=== PATIENT | female | born 1995 | race Two or more races ===

== ENCOUNTER 2016-11-10 21:04 | Emergency (ER) | payer OTHER ==
[2016-11-10 21:12] VITALS: BP 128/76; PULSE 83; TEMP 98; BMI 29.0
--- NOTE | 2016-11-10 21:38 | PDOC ---
History of Present Illness - History of Present Illness Initial Comments: 11/10/16 23:09 Patient is a 20 year old female (18 weeks) with no significant medical hx who is presenting to the ED with one day of pelvic discomfort and lower back pain. Patient reports she recently moved here from [place] where she received care and her last US which was done in 08/2016 that revealed IUP at 13 weeks. Patient today is complaining of one day of mild lower back pain and pelvic discomfort that she describes as cramping. Denies any nausea, vomiting, diarrhea, fever, chills, vaginal bleeding, vaginal discharge, or urinary complaints. /M1, hx of , LNMP: 07/01/2016 NKDA <Awilda Stevens - Last Filed: 11/10/16 23:18> <Naina Hurtado - Last Filed: 11/10/16 23:52> - General Chief Complaint: Pain Stated Complaint: 18 WEEKS WITH ABD PAIN Time Seen by Provider: 11/10/16 21:31 Past History <Awilda Stevens - Last Filed: 11/10/16 23:18> - Psycho/Social/Smoking Cessation Hx Suicidal Ideation: No Smoking History: Never smoked <Naina Hurtado - Last Filed: 11/10/16 23:52> - Past Medical History Allergies/Adverse Reactions: Allergies Allergy/AdvReac Type Severity Reaction Status Date / Time No Known Allergies Allergy Verified 11/10/16 21:09 Home Medications: Ambulatory Orders NK [No Known Home Medication] 11/10/16 Review of Systems - Review of Systems Comments:: 11/10/16 23:15 CONSTITUTIONAL: Absent: fever, chills, diaphoresis, generalized weakness, malaise, loss of appetite HEENT: Absent: rhinorrhea, nasal congestion, throat pain, throat swelling, difficulty swallowing, mouth swelling, ear pain, eye pain, visual changes CARDIOVASCULAR: Absent: chest pain, syncope, palpitations, irregular heart rate, lightheadedness , peripheral edema RESPIRATORY: Absent: cough, shortness of breath, dyspnea with exertion, orthopnea, wheezing, stridor, hemoptysis GASTROINTESTINAL: Present: pelvic cramping Absent: abdominal distension, nausea, vomiting, diarrhea, constipation, melena, hematochezia GENITOURINARY: Absent: dysuria, frequency, urgency, hesitancy, hematuria, flank pain, genital pain MUSCULOSKELETAL: Present: lower back pain Absent: myalgia, arthralgia, joint swelling SKIN: Absent: rash, itching, pallor HEMATOLOGIC/IMMUNOLOGIC: Absent: easy bleeding, easy bruising, lymphadenopathy, frequent infections ENDOCRINE: Absent: unexplained weight gain, unexplained weight loss, heat intolerance, cold intolerance NEUROLOGIC: Absent: headache, focal weakness or paresthesia, dizziness, unsteady gait, seizure, mental status changes, bladder or bowel incontinence. PSYCHIATRIC: Absent: anxiety, depression, suicidal or homicidal ideation, hallucinations <Awilda Stevens - Last Filed: 11/10/16 23:18> *Physical Exam - Vital Signs Last Vital Signs Temp Pulse Resp BP Pulse Ox 98 F 83 20 128/76 100 11/10/16 21:10 11/10/16 21:10 11/10/16 21:10 11/10/16 21:10 11/10/16 21:10 - Physical Exam Comments: 11/10/16 23:15 GENERAL: Well developed, well nourished. Awake and alert. No acute distress. HEENT: Normocephalic, atraumatic. PERRLA, EOMI. No conjunctival pallor. Sclera are non- icteric. Moist mucous membranes. Oropharynx is clear. NECK: Supple. Full ROM. No JVD. Carotid pulses 2+ and symmetric, without bruits. No thyromegaly. No lymphadenopathy. CARDIOVASCULAR: Regular rate and rhythm. No murmurs, rubs, or gallops. Distal pulses are 2+ and symmetric. PULMONARY: No evidence of respiratory distress. Lungs clear to auscultation bilaterally. No wheezing, rales or rhonchi. ABDOMINAL: Gravid abdomen. Soft. Non-tender. Non-distended. No rebound or guarding. No organomegaly. Normoactive bowel sounds. MUSCULOSKELETAL: Normal range of motion at all joints. No bony deformities or tenderness. No CVA tenderness. EXTREMITIES: No cyanosis. No clubbing. No edema. No calf tenderness. SKIN: Warm and dry. Normal capillary refill. No rashes. No jaundice. NEUROLOGICAL: Alert, awake, appropriate. Cranial nerves 2-12 intact. Normal speech. PSYCHIATRIC: Cooperative. Good eye contact. Appropriate mood and affect. <Awilda Stevens - Last Filed: 11/10/16 23:18> - Vital Signs Last Vital Signs Temp Pulse Resp BP Pulse Ox 98 F 83 20 128/76 100 11/10/16 21:10 11/10/16 21:10 11/10/16 21:10 11/10/16 21:10 11/10/16 21:10 <Naina Hurtado - Last Filed: 11/10/16 23:52> *DC/Admit/Observation/Transfer - Attestations Scribe Attestion: 11/10/16 23:16 Documentation prepared by Awilda Stevens, acting as biomedical electronics technician for Naina Hurtado MD. <Awilda Stevens - Last Filed: 11/10/16 23:18> <Niana Hurtado - Last Filed: 11/10/16 23:52> Diagnosis at time of Disposition: Second trimester - Discharge Dispostion Disposition: HOME Condition at time of disposition: Stable - Referrals Referrals: Bi Plata MD [Staff Physician] - Orestes Porter MD [Staff Physician] - Dinora Burgess MD [Staff Physician] - - Patient Instructions Printed Discharge Instructions: DI for -- Discomforts and Remedies Additional Instructions: please followup with ad taker You have been given several names for referral for ad taker return for any worsening symptoms
== END 2016-11-10 23:56 | disposition home or self-care (01) ==
LOC: JER 21:04
DX: O26.892 Other specified pregnancy related conditions, second trimester (principal); R10.30 Lower abdominal pain, unspecified; Z3A.18 18 weeks gestation of pregnancy
CPT/HCPCS: 76801-TC; 99281-25

== ENCOUNTER 2017-04-01 06:10 | Inpatient (IN) | payer OTHER ==
[~2017-04-01 06:10] MED LIST: CITRIC ACID/SODIUM CITRATE 30 ML UNIT-DOSE CUP PO ONE; ELECTROLYTE-148 SOLN 500 ML IV ONE
[2017-04-01] MEDS ORDERED: ELECTROLYTE-148 SOLN 500 ML IV ONE (06:40)
[2017-04-01 06:50] VITALS: BMI 34.2
--- NOTE | 2017-04-01 08:30 | HP ---
Past Medical History - Primary Care Physician PCP:: Huma Sheikh - Admission Chief Complaint: 21yrs , 39.3/7 weeks by sono with previous c/section type unknown, requests for repeat c/section History of Present Illness: care transferred to [address] [place] [address] at 24 weeks work up : O Pos, Hbsag neg, Rubella pos, Rpr nr,Hiv nr , Sickle neg, ! hr Gtt 119, Gc culture neg , Quantiferon neg Chlamydia pos on 08/14/16 in [place] treated with Zithromax in 08/[address] culture 12/10/16 neg , again 03/11/17 Ct culture pos , pt treated at [address] [place] [address] with Zithromax, post NOV treatment culture is not repeated GBS culture positive 01/08/17 sono by [facility] 27.2/7 weeks, sliup vx, ant placenta ,, 42%tile growth . 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 No: GERD Reproductive: No: Other ...: 3 ...Para: 1 (04/28/13 primary c/section 3.5 kg 40 weeks , in [place] ) ...Term: 1 ...: 0 ...Spon : 1 ...Induced : 0 ...Multiple Gestation: 0 ...LMP: 07/01/16 ... Weeks Gestation by Dates: 39.1 ...EDC by Dates: 04/07/17 ...EDC by Sono: 04/05/17 Heme/Onc: Yes: Anemia Infectious Disease: Yes: STD's (h/o chlamydia pos in 07/2016 & in 03/11/17 pos both times treated with zithromax 1 gm . ( h/o significant other was not treated ) Psych: No: Addictions, Anxiety, Bipolar, Depression, Panic, Psychosis, Schizophrenia - Past Surgical History Past Surgical History: Yes: (04/2013 c/section in [place]) Hx Myomectomy: No Hx Transabdominal Cerclage: No - Smoking History Smoking history: Never smoked Have you smoked in the past 12 months: No - Alcohol/Substance Use Hx Alcohol Use: No History of Substance Use: reports: None - Social History History of Recent Travel: No Home Medications - Allergies Allergies/Adverse Reactions: Allergies Allergy/AdvReac Type Severity Reaction Status Date / Time Penicillins AdvReac Intermediate Rash Verified 04/01/17 06:52 - Home Medications Home Medications: Ambulatory Orders Ferrous Sulfate [Feosol] 325 mg PO DAILY 01/08/17 Vit Calc,Iron,Folic [ Vitamins] 1 each PO DAILY 01/08/17 Physical Exam - Maternity Vital Signs: Vital Signs Temperature 98.0 F 04/01/17 06:10 Pulse Rate 93 H 04/01/17 06:10 Respiratory Rate 20 04/01/17 06:10 Blood Pressure 117/64 04/01/17 06:10 O2 Sat by Pulse Oximetry (%) Selected Entries 04/01/17 06:41 Weight 212 lb Constitutional: Yes: Well Nourished, Obese Eyes: Yes: WNL HENT: Yes: WNL, Normocephalic Neck: Yes: WNL Cardiovascular: Yes: WNL, Regular Rate and Rhythm Lungs: Clear to auscultation Breast(s): Yes: WNL - Abdominal Exam/OB Fundal Height: 38 Number of Fetuses: Single Presentation: Vertex Contractions: Yes Regularity: Irregular Intensity: Unaware Monitor Mode: External Heart Rate (range): 140 Heart Rate Location: [facility] Category: I Accelerations: Uniform - Vaginal Exam/OB Vaginal Bleediing: No Dilatation (cm): close Effacement (%): unefface Amniotic Membrane Status: Intact Presentation: Vertex/Position Station: -3 - Physical Exam Musculoskeletal: Yes: WNL Extremities: Yes: WNL. No: Calf Tenderness Edema: Yes Edema: LLE: 1+, RLE: 1+ Integumentary: Yes: Incision (subumblical midline incision) Deep Tendon Reflex Grade: Normal +2 ...Motor Strength: WNL Psychiatric: Yes: WNL, Alert, Oriented - Labs Lab Results: Laboratory Tests 03/30/17 03/30/17 03/30/17 14:02 14:02 14:02 WBC 9.8 D Hgb 13.5 D Hct 39.8 D MCV 89.3 Plt Count 248 Neutrophils % 68.3 Lymphocytes % 22.7 D PT with INR 11.10 INR 0.98 Sodium Potassium Chloride Carbon Dioxide BUN Creatinine Random Glucose AST ALT Urine Protein 1+ H 03/30/17 14:02 WBC Hgb Hct MCV Plt Count Neutrophils % Lymphocytes % PT with INR INR Sodium 138 Potassium 4.7 Chloride 103 Carbon Dioxide 26 BUN 6 L Creatinine 0.5 L D Random Glucose 67 L D AST 17 D ALT 18 Urine Protein Problem List - Problems (1) with 39 completed weeks gestation Code(s): Z3A.39 - 39 WEEKS GESTATION OF (2) Previous section Code(s): Z98.891 - HISTORY OF UTERINE SCAR FROM PREVIOUS SURGERY (3) Positive GBS test Code(s): B95.1 - STREPTOCOCCUS, GROUP B, CAUSING DISEASES CLASSD ELSWHR Assessment/Plan 21 yrs , previous c/section type unknown , GBS pos, requests for repeat c /section Plan Repeat LFTC/Section
[2017-04-01] MEDS ORDERED: ONDANSETRON 4 MG/2 ML VIAL IVPUSH PRN (08:31)
[2017-04-01 09:24] LABS: VENOUS BLOOD GAS HCO3 25.1 meq/L (19-25); VENOUS PH 7.37 (7.32-7.42)
[2017-04-01] MEDS ORDERED: METHYLERGONOVINE MALEATE 0.2 MG/1 ML AMP IM PRN (10:12)
[2017-04-01] MEDS ORDERED: IBUPROFEN 800 MG/8 ML IJ IVPB PRN (10:12)
[2017-04-01] MEDS ORDERED: SENNOSIDES/DOCUSATE COMBO (SENNA PLUS) TABLET (UD) PO PRN (10:12)
[2017-04-01] MEDS: OXYTOCIN 20 UNITS in 0.9% NS 20 UNIT/1,000 ML INFUS.BAG IV SCH (10:50)
--- NOTE | 2017-04-01 11:15 | PN ---
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
--- NOTE | 2017-04-01 11:20 | OP ---
Operative Note - Note: Operative Date: 04/01/17 Pre-Operative Diagnosis: 39.3/7 weeks previous c/s type unknown requests repeat c/s Operation: Repeat LFTC/section Findings: 8.46 Am, baby girl, 7'6", 9/9 both tubes & ovaries normal Dr Benjamin pulverizer feeder present in the room . pfannensteil incision , intradermal sutures taken with V lock suture Surgeon: Huma Sheikh Events Director: Sienna Villavicencio Anesthesiologist/CONTRACT MODELER: Brian Mena Anesthesia: Spinal Specimens Removed: cord segment for cord blood gas. cord blood. placenta Estimated Blood Loss (mls): 600 Drains, Volume Out (mls): 100 (zabala output margarita color) Fluid Volume Replaced (mls): 1,600 (Iv Clindamicin 600 mg iv preincision given ) Operative Report Dictated: Yes
--- NOTE | 2017-04-01 14:06 | SURG ---
Surgery Barrel Filler Head Note Barrel Filler Head: Sienna Villavicencio PA-C Date of Service: 04/01/17 Diagnosis: 39.3/7 weeks previous c/s type unknown requests repeat c/s Procedure: Repeat LFTC/section I was present for the entirety of the operative procedure. For further detail, please refer to operative report. Visit type - Case Type Case Type: Scheduled Admission - Emergency Emergency Visit: No - New patient This patient is new to me today: Yes Date on this admission: 04/01/17
[2017-04-01] MEDS: CLINDAMYCIN 600MG PREMIX IVPB 600 MG/50 ML BAG IVPB SCH ×2 (15:00→21:11)
[2017-04-01] MEDS ORDERED: CEFAZOLIN 1 GM/D5W 50 ML IVPB SCH (18:00)
[2017-04-02] MEDS: OXYTOCIN 20 UNITS in 0.9% NS 20 UNIT/1,000 ML INFUS.BAG IV SCH (02:54)
[2017-04-02] MEDS: CLINDAMYCIN 600MG PREMIX IVPB 600 MG/50 ML BAG IVPB SCH ×2 (02:55→09:12)
--- NOTE | 2017-04-02 07:47 | PN ---
Progress Note (short form) - Note Progress Note: pod 1 doing well, no c/o Last Vital Signs Temp Pulse Resp BP Pulse Ox 98.9 F 75 18 106/56 100 04/02/17 05:58 04/02/17 05:58 04/02/17 05:58 04/02/17 05:58 04/01/17 10:35 abdomen soft, no distension, no cva incision dry, clean no calf tenderness no excess vaginal bleeding plan cbc, ambulate , advance diet
[2017-04-02] MEDS ORDERED: oxyCODONE HCL 5 MG TABLET PO PRN ×2 (08:00)
--- NOTE | 2017-04-02 08:28 | PN ---
Progress Note (short form) - Note Progress Note: POD #1 - s/p under spinal anesthesia with duramorph. VSS. Pt. doing well, sitting up comfortably in bed eating breakfast. Has some pruritis - benadryl given. Good pain control. No apparent anesthetic complications noted. Continue current care.
[2017-04-02 09:04] LABS: BASOPHIL 0.7 % (0-2.0); EOSINOPHIL 1.7 % (0-4.5); MCHC 34.8 g/dl (32.0-36.0); MEAN CELL VOLUME 89.2 fl (80-96); MEAN PLT VOLUME 9.6 fl (7.5-11.1); NEUTROPHILS 73.8 % (42.8-82.8); PLATELET COUNT 181 K/MM3 (134-434); RDW 13.4 % (11.6-15.6); WHITE BLOOD COUNT 10.2 K/mm3 (4.0-10.0)
[2017-04-02] MEDS: PRENATAL VITAMINS W/ FOLIC ACID TABLET (FP) PO SCH (09:12)
[2017-04-02] MEDS: ENOXAPARIN NA (PORCINE) 40 MG/0.4 ML DISP.SYRIN SQ SCH (09:13)
[2017-04-02] MEDS: SIMETHICONE 80 MG TAB.CHEW (FP) PO PRN (09:16)
[2017-04-02] MEDS: IBUPROFEN 600 MG TABLET (FP) PO PRN (09:16)
[2017-04-02] MEDS: ACETAMINOPHEN 325 MG TABLET (FP) PO PRN (09:17)
--- NOTE | 2017-04-02 09:49 | OP ---
DATE OF OPERATION: 04/01/2017 PREOPERATIVE DIAGNOSIS: A 39.3-week , previous section , request for repeat section. OPERATION DONE: A repeat low flap transverse section. SURGEON: Huma Sheikh MD ASSISTANT PROFESSOR OF SOCIOLOGY SURGEON: SEN Mederos ANESTHESIOLOGIST: Brian Mena MD ANESTHESIA: Spinal. FINDINGS: This is a 21-year-old 3 para 1-1 at 39.3 weeks, not in labor , and had a done in [place]. Operative report not obtained. So, request for . PROCEDURE: Patient was taken to the operating room table. Abdomen was shaved, prepped. Vyas catheter was placed. Spinal anesthesia was given. She was placed in supine position. Incidentally, patient is obese, and she had a subumbilical midline scar. So, abdomen was painted and draped in usual manner. A Pfannenstiel incision was made. The skin, subcutaneous tissue, scar tissue were incised transversely. Bleeding points were clamped and cauterized. Rectus sheath incised transversely. The rectus muscle was from the rectus sheath. Parietal peritoneum was opened vertically. Lower flap of the peritoneum was identified, incised transversely. Amniotic fluid was light, meconium stained, and cord was around the neck x once. Cord was clamped, cut, and cord blood was collected. Cord segment was also sent with the cord blood gases. Dr.Mandru Oneill , the Front Attendant was present in the OR. Baby's was 9, 9, and the baby girls weight was 7 pound 6 ounces. Placenta was completely removed with the membranes, and the closure of the uterine cavity was done. Uterus was closed in two layers. The first layer was a continuous locking with a Biosyn 0 suture, second layer was a continuous locking with a Biosyn 0 suture. First layer was imbricated with the second layer by taking vertical mattress sutures. The bladder peritoneum also was closed with Biosyn 0 suture. Hemostasis was verified. Both tubes and ovaries were inspected, they were normal. Irrigation was done. Sponge, instrument, and needle counts were correct. Then, the closure of the abdomen was done. The parietal peritoneum was closed with a Vicryl 0 suture. Then, muscles were approximated with interrupted sutures. Hemostasis was checked underneath the rectus sheath. Anterior rectus sheath was closed with a Vicryl 0 suture. Continuous sutures were taken. The subcutaneous tissue was approximated with interrupted Vicryl 0 suture. Then, skin was approximated by taking intradermal suture with a V-Loc suture. Steri-Strips were applied, and pressure dressing was applied . Blood clots were removed from the vagina. Patient tolerated the procedure well. She was transferred to the recovery room in stable condition. Estimated blood loss was 600 mL. Intraoperative urine output was 100 mL, margarita colored. She received IV clindamycin 600 mg prior to the incision. Charanjit [id number] MTDD
[2017-04-02] MEDS ORDERED: BISACODYL 10 MG SUPP.RECT RC PRN (10:12)
[2017-04-02] MEDS: FERROUS SO4 325 MG TABLET (FP) PO SCH (21:02)
[2017-04-03] MEDS: IBUPROFEN 600 MG TABLET (FP) PO PRN ×2 (07:52→20:03)
[2017-04-03] MEDS: ACETAMINOPHEN 325 MG TABLET (FP) PO PRN (07:53)
[2017-04-03] MEDS: SIMETHICONE 80 MG TAB.CHEW (FP) PO PRN (07:53)
--- NOTE | 2017-04-03 08:49 | PN ---
Progress Note (short form) - Note Progress Note: pod 2 tolerating diet, ambulating CBC, BMP 04/02/17 08:55 Last Vital Signs Temp Pulse Resp BP Pulse Ox 98.3 F 81 20 112/54 100 04/02/17 21:18 04/02/17 21:18 04/02/17 21:18 04/02/17 21:18 04/01/17 10:35 abdomen soft , no distension, no cva incison dry, healing nwell, no discharge no calf tenderness no excess vaginal bleeding plan ambulate cbc in am pain management
[2017-04-03] MEDS: PRENATAL VITAMINS W/ FOLIC ACID TABLET (FP) PO SCH (09:52)
[2017-04-03] MEDS: ENOXAPARIN NA (PORCINE) 40 MG/0.4 ML DISP.SYRIN SQ SCH (09:52)
[2017-04-03] MEDS: FERROUS SO4 325 MG TABLET (FP) PO SCH ×2 (09:52→21:34)
[2017-04-04 06:25] LABS: BASOPHIL 0.8 % (0-2.0); EOSINOPHIL 2.7 % (0-4.5); MCH 31.1 pg (25.7-33.7); MCHC 34.5 g/dl (32.0-36.0); MEAN CELL VOLUME 89.9 fl (80-96); MEAN PLT VOLUME 9.6 fl (7.5-11.1); NEUTROPHILS 57.4 % (42.8-82.8); PLATELET COUNT 196 K/MM3 (134-434); RDW 13.4 % (11.6-15.6); WHITE BLOOD COUNT 8.8 K/mm3 (4.0-10.0)
[2017-04-04] MEDS: PRENATAL VITAMINS W/ FOLIC ACID TABLET (FP) PO SCH (09:32)
[2017-04-04] MEDS: ENOXAPARIN NA (PORCINE) 40 MG/0.4 ML DISP.SYRIN SQ SCH (09:32)
[2017-04-04] MEDS: FERROUS SO4 325 MG TABLET (FP) PO SCH (09:32)
[2017-04-04 11:03] VITALS: BP 120/74; PULSE 80; TEMP 98.5
--- NOTE | 2017-04-04 12:49 | PN ---
Progress Note (short form) - Note Progress Note: pod3 doing well, no c/o, wants to go home today CBC, BMP 04/04/17 06:05 CBC, BMP 04/04/17 06:05 Last Vital Signs Temp Pulse Resp BP Pulse Ox 98.5 F 80 20 120/74 99 04/04/17 07:40 04/04/17 07:40 04/04/17 07:40 04/04/17 07:40 04/03/17 21:00 abdomen soft, BS present, incision dry, clean no calf tenderness , lochia mild plan d/c home rtc on Wednesday for barbie removal
--- NOTE | 2017-04-06 18:22 | DS ---
Physical Exam-MANAGER PRODUCTION Vital Signs: Vital Signs Temperature 98.5 F 04/04/17 07:40 Pulse Rate 80 04/04/17 07:40 Respiratory Rate 20 04/04/17 07:40 Blood Pressure 120/74 04/04/17 07:40 O2 Sat by Pulse Oximetry (%) 99 04/03/17 21:00 Constitutional: Yes: Well Nourished Eyes: Yes: WNL HENT: Yes: WNL Neck: Yes: WNL Cardiovascular: Yes: WNL Respiratory: Yes: WNL, CTA Bilaterally Gastrointestinal: Yes: WNL, Normal Bowel Sounds, Soft, Other (bm done). No: Distention, Tenderness Renal/: Yes: WNL Pelvis: Yes: WNL External Genitalia: Yes: Normal ....Post : Yes: Uterus firm, Uterus non-tender, Moderate lochia rubra Breast(s): Yes: WNL (BF) Musculoskeletal: Yes: WNL Extremities: Yes: WNL. No: Calf Tenderness Edema: Yes Edema: LLE: 1+, RLE: 1+ Wound/Incision: Yes: Clean/Dry, Well Approximated, Sutures Intact (intradermal suture), Steri Strips, Open to air. No: Draining, Reddened, Bleeding Neurological: Yes: WNL, Alert, Oriented ...Motor Strength: WNL Psychiatric: Yes: WNL, Alert, Oriented Labs: CBC, BMP 04/04/17 06:05 Delivery - Delivery Vaginal Delivery: No Problems Section: Repeat, Low Flap Transverse (39 3/7 weeks, previous c/sectio type unknown) Type of Anesthesia: Spinal Episiotomy/Laceration: None EBL (cc): 600 (zabala output 100 ml margarita color ) Delivery, Single - Stages of Labor Date of Delivery: 04/01/17 Time of Delivery: 08:46 Time Placenta Delivered: 08:47 Placenta: Yes: Manual Removal, Uterine Exploration - Condition of Infant Tube Builder/Act Tutor Present: [place]: TeenaNino Infant Gender: Female Weight: 7 lb 6 oz Position: Left, OP Total Hours ROM (Hrs/Mins): 2min - 1 Minute Total Score: 9 5 Minutes Total Score: 9 - Feeding Plan Initial Plan: Exclusive throughout hospitalization Remarks - Remarks Remarks: 21 yrs , previous c/section type unknpwn , requests for repeat c/s, h/o gbs pos pnc at 2, [facility] h/o pos chlamydia i0n & 03/11/17 treated in 08/2016 & with Zithromax po Intraop course uneventful treated with Iv Clindamicin 600 mg IVPB in OR post op course uneventful. anemia counselled discharge 04/04/17 Discharge Summary Reason For Visit: ADMIT C/S Condition: Good - Instructions Diet, Activity, Other Instructions: regular diet, no intercourse, follow up [facility] care on Wednesday If fever, heavy bleeding or pain, call M.D. If redness or drainage noted to incision, call M.D. [facility] [phone] Referrals: Huma Sheikh MD [Staff Physician] - Disposition: HOME - Home Medications Comprehensive Discharge Medication List: Ambulatory Orders Ferrous Sulfate [Feosol] 325 mg PO DAILY 01/08/17 Vit Calc,Iron,Folic [ Vitamins] 1 each PO DAILY 01/08/17 Ibuprofen [Motrin -] 600 mg PO QID #28 tablet 04/04/17
--- NOTE | 2017-04-07 15:53 | PATH ---
Surgical Pathology Report Patient Name: JANUSZ HOOVER Med. Rec. 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 Specimen(s) Received PLACENTA Clinical History for repeat EDC 04/07/17 Final Diagnosis PLACENTA, DELIVERY: FOCALLY DISRUPTED THIRD TRIMESTER PLACENTA WITH INTERVILLOUS FIBRIN DEPOSITION, THREE VESSEL UMBILICAL CORD AND UNREMARKABLE PLACENTAL MEMBRANES. Electronically Signed Thierry Martel M.D. Gross Description The specimen is received fresh labeled placenta and is a 430 gram, 15.0 x 13.0 x 2.8 cm. placenta with attached membranes and umbilical cord. The attached membranes are cade, translucent with focal opacities and insert marginally. The umbilical cord measures 9 cm. in length and averages 1.1 cm. in diameter. The cord inserts eccentrically, 3.5 cm. to the nearest margin. No true knots or strictures are identified. Cut surface of the umbilical cord reveals 3 vessels. The surface is sánchez green, meconium stained with minimal fibrin deposition and appropriate caliber vessels. The maternal surface is red-brown with focal defects. Sectioning reveals red-brown and intact. No lesions are identified. Register Clerk sections are submitted in three cassettes as follows: 1- membrane rolls and umbilical cord; 2-3- full thickness sections of placenta. /04/05/201704/05/2017
== END 2017-04-04 14:00 | disposition home or self-care (01) | DRG 540 ==
LOC: JLDR 06:10 → J3W 11:00
PROVIDERS: ADMIT Obstetrics & Gynecology; ATTEND Obstetrics & Gynecology
PROC: 10D00Z1 Extraction of Products of Conception, Low, Open Approach (ICD-10-PCS; principal; 2017-04-04)
DX: O34.219 Maternal care for unspecified type scar from previous cesarean delivery (principal); O99.824 Streptococcus B carrier state complicating childbirth; O99.213 Obesity complicating pregnancy, third trimester; E66.8 Other obesity; Z68.34 Body mass index [BMI] 34.0-34.9, adult; Z3A.39 39 weeks gestation of pregnancy; Z37.0 Single live birth
CPT/HCPCS: 36415; 82803; 85025; 88307-TC

== ENCOUNTER 2021-01-23 04:17 | Day surgery (SDC) | payer BC ==
[2021-01-22 12:50] VITALS: BMI 33.7
[~2021-01-23 04:17] MED LIST changes: +ACETAMINOPHEN 1000 MG/100 ML VIAL (NON FORMULARY) IVPB ONE; +BUPIVACAINE HCL/PF 0.5% (5MG/ML) 10 ML VIAL IJ ONE; -CITRIC ACID/SODIUM CITRATE 30 ML UNIT-DOSE CUP PO ONE; -ELECTROLYTE-148 SOLN 500 ML IV ONE; +LIDOCAINE 1%/EPI 1:100000 (20 ML MULTI DOSE VIAL) IJ ONE; +MICROFIBRILLAR COLLAGEN 1 GM EACH TP ONE; +ceFAZolin 2 GRAM PREMIX BAG IVPB ONE
[2021-01-23] MEDS ORDERED: LIDOCAINE HCL/PF 2% SDV 5ML VIAL ONE (16:27)
[2021-01-23] MEDS ORDERED: fentaNYL CITRATE 250 MCG/5 ML VIAL ONE (16:27)
[2021-01-23] MEDS ORDERED: DEXAMETHASONE SOD PHOSPHATE 4 MG/1 ML VIAL ONE (16:27)
[2021-01-23] MEDS ORDERED: MIDAZOLAM HCL 2 MG/2 ML SINGLE DOSE VIAL ONE (16:28)
[2021-01-23] MEDS ORDERED: PROPOFOL 20 ML ONE (16:28)
[2021-01-23] MEDS ORDERED: BUPIVACAINE HCL/PF 0.5% (5MG/ML) 10 ML VIAL ONE (16:30)
[2021-01-23] MEDS ORDERED: LIDOCAINE 1%/EPI 1:100000 (20 ML MULTI DOSE VIAL) ONE (16:30)
[2021-01-23] MEDS ORDERED: ACETAMINOPHEN INJECTION 100 ML IVPB ONE (16:55)
[2021-01-23] MEDS ORDERED: ceFAZolin 2 GRAM PREMIX BAG IVPB ONE (17:08)
[2021-01-23] MEDS ORDERED: ACETAMINOPHEN 1000 MG/100 ML VIAL (NON FORMULARY) IVPB ONE (17:10)
[2021-01-23] MEDS ORDERED: LIDOCAINE 1%/EPI 1:100000 (20 ML MULTI DOSE VIAL) IJ ONE (17:21)
[2021-01-23] MEDS ORDERED: BUPIVACAINE HCL/PF 0.5% (5MG/ML) 10 ML VIAL IJ ONE (17:21)
[2021-01-23] MEDS ORDERED: DESFLURANE GAS 240 ML BOTTLE IH ONE (17:40)
[2021-01-23] MEDS ORDERED: MICROFIBRILLAR COLLAGEN 1 GM EACH TP ONE (18:14)
[2021-01-23] MEDS ORDERED: oxyCODONE HCL 5 MG TABLET PO PRN (18:42)
[2021-01-23] MEDS ORDERED: ONDANSETRON 4 MG/2 ML VIAL IVPUSH PRN (18:42)
[2021-01-23] MEDS: LACTATED RINGERS SOLUTION 1,000 ML IV SCH (19:00)
[2021-01-23] MEDS ORDERED: ONDANSETRON 4 MG/2 ML VIAL ONE (19:18)
[2021-01-23 21:01] LABS: HIV INTERPRETATION NEGATIVE (NEGATIVE)
[2021-01-24] MEDS: LACTATED RINGERS SOLUTION 1,000 ML IV SCH (02:27)
[2021-01-24 09:59] VITALS: BP 119/66; PULSE 84; TEMP 98.6
[2021-01-24] MEDS ORDERED: TOPIRAMATE 25 MG TABLET PO SCH (10:00)
[2021-01-24] MEDS ORDERED: ONDANSETRON 4 MG/2 ML VIAL IVPUSH PRN (10:43)
== END 2021-01-24 12:49 | disposition home or self-care (01) ==
LOC: JASUSAT 04:17 → JASU-SURG 04:17 → J8W 21:08 → JASUSAT 01-24 12:49
PROVIDERS: ATTEND Surgery
PROC: 0GTH0ZZ Resection of Right Thyroid Gland Lobe, Open Approach (ICD-10-PCS; principal; 2021-01-23 15:00)
DX: D34 Benign neoplasm of thyroid gland (principal)
CPT/HCPCS: 36415; 81025; 84460; 84703; 86803; 87340; 87389; 88307-TC; 93005; 93010; 94760; J0131